=== PATIENT | male | born 1975 ===

== ENCOUNTER → 2020-02-03 | Outpatient (CLI) | payer SELFPAY | END | disposition home or self-care (01) | LOC: COVID19 09:05 | DX: Z03.818 Encounter for observation for suspected exposure to other biological agents ruled out (principal); B34.9 Viral infection, unspecified; Z78.9 Other specified health status; Z20.828 Contact with and (suspected) exposure to other viral communicable diseases ==

== ENCOUNTER 2021-11-18 10:21 | Emergency (ER) | payer SELFPAY ==
[2021-11-18 10:47] LABS: BASO # 0.1 10*3/uL (0.0-0.1); BASO % 0.8 % (0.0-1.0); EOS # 0.2 10*3/uL (0.0-0.4); EOS % 3.2 % (1.0-4.0); HEMATOCRIT 47.3 % (42.0-52.0); LYMPH # 2.7 10*3/uL (1.3-4.4); LYMPH % 44.1 % (27.0-41.0); MEAN CELL VOLUME 101.3 fl (80.0-94.0); MEAN CORPUSCULAR HGB 35.1 pg (27.0-31.0); MEAN CORPUSCULAR HGB CONC 34.7 g/dl (33.0-37.0); MEAN PLATELET VOLUME 10.5 fl (9.6-12.3); MONO # 0.6 10*3/uL (0.1-1.0); MONO % 9.7 % (3.0-9.0); NEUT # 2.6 10*3/uL (2.3-7.9); NEUT % 41.9 % (47.0-73.0); PLATELET COUNT AUTOMATED 170 10*3/uL (130-400); RED BLOOD COUNT 4.67 10*6/uL (4.50-5.90); RED CELL DISTRI WIDTH 12.9 % (0-14.5); WHITE BLOOD COUNT 6.2 10*3/uL (4.8-10.8)
[2021-11-18 11:01] LABS: ALBUMIN 3.5 gm/dl (3.1-4.5); ALKALINE PHOSPHATASE 105 U/L (45-117); BUN 9 mg/dl (7-24); CHLORIDE 108 mmol/L (98-107); CREATININE 0.89 mg/dL (0.70-1.30); POTASSIUM 3.9 mmol/L (3.5-5.1); SGOT/AST 481 IU/L (3-35); SGPT/ALT 556 U/L (12-78); SODIUM 142 mmol/L (136-145); TOTAL PROTEIN 7.7 gm/dL (6.4-8.2)
== END 2021-11-18 10:50 | disposition left against medical advice (07) ==
LOC: ED 10:21
PROVIDERS: Emergency Medicine
DX: J34.89 Other specified disorders of nose and nasal sinuses (principal); Z53.21 Procedure and treatment not carried out due to patient leaving prior to being seen by health care provider; F17.200 Nicotine dependence, unspecified, uncomplicated

== ENCOUNTER → 2023-08-26 | Outpatient (CLI) | payer SELFPAY | END | disposition home or self-care (01) | LOC: MAMMO 08:35 | PROVIDERS: ATTEND Physician Assistant | DX: N64.9 Disorder of breast, unspecified (principal) ==